=== PATIENT | female | born 1955 | race Caucasian/White ===

== ENCOUNTER 2019-08-01 15:32 | Emergency (ER) | payer MEDICARE, SELFPAY ==
[2019-08-01] MEDS ORDERED: Fluorescein Opthalmic Strip ONE (15:54)
== END 2019-08-01 16:16 | disposition home or self-care (01) ==
LOC: NAV ERS 15:32
DX: H57.12 Ocular pain, left eye (principal); K21.9 Gastro-esophageal reflux disease without esophagitis; Z79.899 Other long term (current) drug therapy
CPT/HCPCS: 99283

== ENCOUNTER 2020-04-29 16:00 | Outpatient (CLI) | payer MEDICARE ==
--- NOTE | 2020-04-29 16:54 | RAD ---
LEFT KNEE 3 VIEWS: Date: 04/29/2020 HISTORY: Arthritis left knee. FINDINGS: Very mild medial compartment hypertrophic osteophytosis. No fracture, dislocation, joint effusion, or other acute process. IMPRESSION: Mild degenerative and osteoarthrosis change. POS: [facility]
== END 2020-04-29 16:01 | disposition home or self-care (01) ==
LOC: NAV RAD 16:00
PROVIDERS: ATTEND Family Medicine
DX: M17.12 Unilateral primary osteoarthritis, left knee (principal)